=== PATIENT | male | born 1960 | race Caucasian/White ===

== ENCOUNTER 2018-07-09 18:13 | Emergency (ER) | payer BC ==
[2018-07-09] MEDS ORDERED: DIPHENHYDRAMINE 50 MG/ML VIAL ONE (19:02)
[2018-07-09] MEDS ORDERED: FAMOTIDINE 20 MG/2 ML VIAL IV ONE (19:02)
[2018-07-09 19:20] LABS: Absolute Monocytes 0.8 K/uL (0.1-1.3); Absolute Neutrophil 5.9 K/uL (1.8-8.0); Basophils % 1.1 % (0-1.3); Eosinophils % 1.2 % (0-4.4); Hematocrit 50.5 % (39.6-49.0); Lymphocytes % 22.5 % (15.3-44.8); MPV 6.5 fL (7.6-11.3); Monocytes % 8.7 % (3.3-12.3); RBC Red Blood Cell Count 5.47 M/uL (4.33-5.43)
[2018-07-09 19:21] LABS: Protime INR 1.04
[2018-07-09 19:44] LABS: ALT/SGPT 55 U/L (12-78); AST/SGOT 32 U/L (15-37); Albumin 4.5 g/dL (3.4-5.0); Alkaline Phosphatase 73 U/L (45-117); BUN Blood Urea Nitrogen 11 mg/dL (7-18); Bicarbonate 28 mmol/L (21-32); Bilirubin Direct 0.2 mg/dL (0-0.2); Bilirubin Total 0.5 mg/dL (0.2-1.0); Glucose Level 96 mg/dL (74-106); Magnesium 2.3 mg/dL (1.8-2.4); NT PRO-BNP 33 pg/mL (<125); Potassium 3.5 mmol/L (3.5-5.1); Protein, Total 7.3 g/dL (6.4-8.2); Sodium Level 135 mmol/L (136-145); Troponin (Emerg Dept Use Only) < 0.02 ng/mL (0.0-0.045)
--- NOTE | 2018-07-09 20:09 | RAD REPORT ---
EXAM DESCRIPTION: RAD - Chest Single View - 07/09/2018 7:01 pm CLINICAL HISTORY: CHEST PAIN Chest pain. COMPARISON: Chest Pa And Lat (2 Views) dated 05/13/2016 FINDINGS: Portable technique limits examination quality. The lungs are grossly clear. The heart is normal in size. No displaced fractures. IMPRESSION: No acute intrathoracic process suspected.
[2018-07-09] MEDS ORDERED: DEXAMETHASONE 4 MG/ML VIAL ONE (20:25)
--- NOTE | 2018-07-09 21:43 | ER ---
Nurse's Notes [facility] Name: Garrett Todd Jr Age: 58 yrs Sex: Male : 1960 Arrival Date: 07/09/2018 Time: 18:17 Bed 2 Private MD: Diagnosis: Chest pain, unspecified;Rash and other nonspecific skin eruption Presentation: 07/09 18:18 Presenting complaint: Patient states: midsternal constant chest pain "sting/burn" sv started about 1.5 hrs ago, took BP at [facility] and was 176/111. c/o left facial/neck rash that started today as well. Denies SOB/n/v. Transition of care: patient was not received from another setting of care. Onset of symptoms was July 09, 2018 at 16:30. Risk Assessment: Do you want to hurt yourself or someone else? Patient reports no desire to harm self or others. Initial Sepsis Screen: Does the patient meet any 2 criteria? No. Patient's initial sepsis screen is negative. Does the patient have a suspected source of infection? No. Patient's initial sepsis screen is negative. Care prior to arrival: None. 18:18 Method Of Arrival: Wheelchair sv 18:18 Acuity: WALKER 2 sv Triage Assessment: 18:18 General: Appears in no apparent distress. uncomfortable, well groomed, well developed, sv Behavior is calm, cooperative, appropriate for age. Pain: Complains of pain in mid-sternal area Pain currently is 6 out of 10 on a pain scale. Quality of pain is described as burning, stinging, Pain began 1.5 hrs ago Is continuous, Alleviated by nothing. Neuro: Level of Consciousness is awake, alert, obeys commands, Oriented to person, place, time, situation, Moves all extremities. Full function Gait is steady, Speech is normal. Cardiovascular: Patient's skin is warm and dry. Pulses are 3+ in right brachial artery and left brachial artery Rhythm is sinus rhythm. Respiratory: Airway is patent Respiratory effort is even, unlabored, Respiratory pattern is regular, symmetrical, Denies shortness of breath. Derm: Skin is pink, warm \\T\\ dry. Musculoskeletal: Range of motion: intact in all extremities. Historical: - Allergies: 19:08 No Known Allergies; sv - Home Meds: 19:08 metoprolol tartrate 25 mg Oral tab 1 tab 2 times per day [Active]; hydrochlorothiazide sv 12.5 mg Oral cap 1 cap once daily [Active]; aspirin 81 mg Oral chew 1 tab once daily [Active]; - PMHx: 19:08 Hypertension; Rheumatoid Arthritis; Gout; sv - PSHx: 19:08 Tonsillectomy; Knee surgery; Hernia repair; sv - Immunization history:: Adult Immunizations up to date. - Social history:: Smoking status: Patient/guardian denies using tobacco, Patient uses alcohol, occasionally. - Ebola Screening: : No symptoms or risks identified at this time. Screenin:18 Abuse screen: Denies threats or abuse. Denies injuries from another. Nutritional sv screening: No deficits noted. Tuberculosis screening: No symptoms or risk factors identified. Fall Risk None identified. Assessment: 18:55 Reassessment: Patient appears in no apparent distress at this time. No changes from sv previously documented assessment. Patient and/or family updated on plan of care and expected duration. Pain level reassessed. Patient is alert, oriented x 3, equal unlabored respirations, skin warm/dry/pink. 20:48 Reassessment: Patient appears in no apparent distress at this time. Patient and/or aa1 family updated on plan of care and expected duration. Pain level reassessed. Patient is alert, oriented x 3, equal unlabored respirations, skin warm/dry/pink. Repeat troponin sent at this time Patient states feeling better. 21:08 Reassessment: Patient appears in no apparent distress at this time. Patient and/or aa1 family updated on plan of care and expected duration. Pain level reassessed. Patient is alert, oriented x 3, equal unlabored respirations, skin warm/dry/pink. Awaiting repeat troponin results. 21:52 Reassessment: Patient appears in no apparent distress at this time. Patient is alert, aa1 oriented x 3, equal unlabored respirations, skin warm/dry/pink. Discussed d/c \\T\\ f/u instructions with pt; denies questions or concerns at this time Patient denies pain at this time. Vital Signs: 18:18 BP 184 / 123; Pulse 96; Resp 20; Temp 97.6; Pulse Ox 100% ; Weight 81.65 kg; Height 5 sv ft. 11 in. (180.34 cm); Pain 6/10; 18:28 BP 179 / 122; Pulse 95; Resp 17; Pulse Ox 100% on 2 lpm NC; sv 19:00 BP 149 / 112; Pulse 97; Resp 16; Pulse Ox 99% on 2 lpm NC; sv 20:01 BP 153 / 110; Pulse 94; Resp 18; Pulse Ox 96% on R/A; Pain 0/10; aa1 21:08 BP 148 / 103; Pulse 92; Resp 16; Pulse Ox 94% on R/A; Pain 0/10; aa1 18:18 Body Mass Index 25.10 (81.65 kg, 180.34 cm) sv ED Course: 18:17 Patient arrived in ED. sb2 18:18 Roberta Cervantes, RN is Primary Nurse. sv 18:18 Patient has correct armband on for positive identification. Placed in gown. Bed in low sv position. Call light in reach. paid search marketing analyst on. Pulse ox on. NIBP on. Door closed. Head of bed elevated. 18:30 Arm band placed on. sv 18:30 Initial lab(s) drawn, by me, sent to lab. Inserted saline lock: 20 gauge in right sv antecubital area, using aseptic technique. Blood collected. Flushed right antecubital with 5 ml normal saline. Oxygen administration via nasal cannula \\T\\ 2L/min. 18:32 Unruly Roman PA is PHCP. [facility] 18:32 Parviz Greene MD is Attending Physician. [facility] 18:59 XRAY Chest (1 view) In Process Unspecified. EDMS 19:07 Triage completed. sv 19:12 Report given to Estela OROZCO. sv 19:36 Primary Nurse role handed off by Roberta Cervantes RN sv 20:01 Estela Ignacio RN is Primary Nurse. aa1 20:48 Repeat lab(s) drawn. by me, sent to lab. aa1 21:52 No provider procedures requiring assistance completed. IV discontinued, intact, aa1 bleeding controlled, No redness/swelling at site. Pressure dressing applied. Administered Medications: 18:55 Drug: Pepcid 20 mg Route: IVP; Site: right antecubital; sv 19:13 Follow up: Response: No adverse reaction sv 18:57 Drug: diphenhydrAMINE 12.5 mg Route: IVP; Site: right antecubital; sv 19:13 Follow up: Response: No adverse reaction 20:22 Drug: Decadron - Dexamethasone 10 mg Route: IVP; Site: right antecubital; aa1 21:51 Follow up: Response: No adverse reaction aa1 Outcome: 21:42 Discharge ordered by . tiffanie 21:52 Discharged to home ambulatory. aa1 21:52 Condition: good 21:52 Discharge instructions given to patient, Instructed on discharge instructions, follow up and referral plans. medication usage, Demonstrated understanding of instructions, follow-up care, medications, Prescriptions given X 1. 21:54 Patient left the ED. aa1 Signatures: Dispatcher [employer] EDRoberta Welsh RN RN sv Kern, Alissa, RN RN aa1 Unruly Roman PA PA jmm Billeau, Sheri sb2
--- NOTE | 2018-07-09 21:43 | EDPHYS ---
Physician Documentation [facility] Name: Garrett Todd Jr Age: 58 yrs Sex: Male : 1960 Arrival Date: 07/09/2018 Time: 18:17 Bed 2 Private MD: ED Physician Parviz Greene HPI: 07/09 18:40 This 58 yrs old Male presents to ER via Wheelchair with complaints of Chest jmm Pain > 30 y/o. 18:40 The patient or guardian reports chest pain that is located primarily in the anterior [facility] chest wall, bilaterally. Onset: gradually, 1.5 hour(s) ago. The pain does not radiate. Associated signs and symptoms: Pertinent positives: Pertinent negatives: abdominal pain, cough, shortness of breath. The chest pain is described as burning. Duration: The patient or guardian reports a single episode. This is a 58 year old male with a history of htn, RA that presents to the ED with a rash to his face, neck, and chest. Initially beginning yesterday to his neck which has spread today. patient states he went to check his blood pressure, noticed it was elevated, then developed a burning/tight chest pain to his anterior chest wall around the area of rash. 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 . Historical: - Allergies: 19:08 No Known Allergies; sv - Home Meds: 19:08 metoprolol tartrate 25 mg Oral tab 1 tab 2 times per day [Active]; hydrochlorothiazide sv 12.5 mg Oral cap 1 cap once daily [Active]; aspirin 81 mg Oral chew 1 tab once daily [Active]; - PMHx: 19:08 Hypertension; Rheumatoid Arthritis; Gout; sv - PSHx: 19:08 Tonsillectomy; Knee surgery; Hernia repair; sv - Immunization history:: Adult Immunizations up to date. - Social history:: Smoking status: Patient/guardian denies using tobacco, Patient uses alcohol, occasionally. - Ebola Screening: : No symptoms or risks identified at this time. ROS: 18:40 Constitutional: Negative for fever, chills, and weight loss. jmm 18:40 Cardiovascular: Positive for chest pain. 18:40 Respiratory: Negative for shortness of breath. 18:40 Skin: Positive for rash. 18:40 All other systems are negative. Exam: 18:40 Constitutional: This is a well developed, well nourished patient who is awake, alert, jmm and in no acute distress. 18:40 Eyes: EOMI, no conjunctival erythema appreciated ENT: Moist Mucus Membranes Neck: Trachea midline, Supple Chest/axilla: Normal chest wall appearance and motion. 18:40 Abdomen/GI: Non distended, soft Back: Normal ROM 18:40 Head/face: erythematous rash noted to the face. 18:40 Cardiovascular: Rate: normal, Rhythm: regular, Pulses: no pulse deficits are appreciated. 18:40 Respiratory: the patient does not display signs of respiratory distress, Respirations: normal, Breath sounds: are clear throughout. 18:40 Skin: erythematous rash noted to the face, neck, and anterior chest wall. 18:40 Neuro: Orientation: is normal, Mentation: is normal, Memory: is normal. 18:40 Psych: Behavior/mood is pleasant, cooperative. Vital Signs: 18:18 BP 184 / 123; Pulse 96; Resp 20; Temp 97.6; Pulse Ox 100% ; Weight 81.65 kg; Height 5 sv ft. 11 in. (180.34 cm); Pain 6/10; 18:28 BP 179 / 122; Pulse 95; Resp 17; Pulse Ox 100% on 2 lpm NC; sv 19:00 BP 149 / 112; Pulse 97; Resp 16; Pulse Ox 99% on 2 lpm NC; sv 20:01 BP 153 / 110; Pulse 94; Resp 18; Pulse Ox 96% on R/A; Pain 0/10; aa1 21:08 BP 148 / 103; Pulse 92; Resp 16; Pulse Ox 94% on R/A; Pain 0/10; aa1 18:18 Body Mass Index 25.10 (81.65 kg, 180.34 cm) sv MDM: 18:40 Patient medically screened. [facility] 21:18 HEART Score: ECG: Normal (0), Age: > 45 and < 65 years (1), Risk Factors: 1 or 2 risk [facility] factors (1), Troponin: < or = 1 x Normal Limit (0). JUANCHO Risk Score: TOTAL SCORE = 0. Data reviewed: vital signs, nurses notes, lab test result(s), EKG, radiologic studies, plain films. ED course: Chest pain appears secondary to rash. Chest pain is atypical of cardiac conditions. Cardiac enzymes negative. Patient is given strict return precautions for increased chest pain or if he develops shortness of breath.. 21:18 Counseling: I had a detailed discussion with the patient and/or guardian regarding: the [facility] historical points, exam findings, and any diagnostic results supporting the discharge/admit diagnosis, lab results, radiology results, the need for outpatient follow up, to return to the emergency department if symptoms worsen or persist or if there are any questions or concerns that arise at home. 21:19 The patient's pulmonary embolism risk score was calculated as follows: No Risks (0 jmm Pts). Data interpreted: Pulse oximetry: on room air is 94 %. Interpretation: normal. Test interpretation: by ED physician or midlevel provider: ECG. 07/09 18:25 Order name: Basic Metabolic Panel; Complete Time: 19:54 sv 07/09 18:25 Order name: CBC with Diff; Complete Time: 19:27 sv 07/09 18:25 Order name: LFT's; Complete Time: 19:54 sv 07/09 18:25 Order name: Magnesium; Complete Time: 19:54 sv 07/09 18:25 Order name: NT PRO-BNP; Complete Time: 19:54 sv 07/09 18:25 Order name: PT-INR; Complete Time: 19:27 sv 07/09 18:25 Order name: Troponin (emerg Dept Use Only); Complete Time: 19:54 sv 07/09 18:25 Order name: XRAY Chest (1 view); Complete Time: 20:11 sv 07/09 18:25 Order name: EKG; Complete Time: 18:27 sv 07/09 18:25 Order name: Cardiac monitoring; Complete Time: 19:13 sv 07/09 20:37 Order name: Troponin (emerg Dept Use Only); Complete Time: 21:42 jmm 07/09 18:25 Order name: EKG - Nurse/Tech; Complete Time: 19:13 sv 07/09 18:25 Order name: IV Saline Lock; Complete Time: 19:13 sv 07/09 18:25 Order name: Labs collected and sent; Complete Time: 19:13 sv 07/09 18:25 Order name: O2 Per Protocol; Complete Time: 19:13 sv 07/09 18:25 Order name: O2 Sat Monitoring; Complete Time: 19:13 sv Administered Medications: 18:55 Drug: Pepcid 20 mg Route: IVP; Site: right antecubital; sv 19:13 Follow up: Response: No adverse reaction sv 18:57 Drug: diphenhydrAMINE 12.5 mg Route: IVP; Site: right antecubital; sv 19:13 Follow up: Response: No adverse reaction sv 20:22 Drug: Decadron - Dexamethasone 10 mg Route: IVP; Site: right antecubital; aa1 21:51 Follow up: Response: No adverse reaction aa1 Disposition: 07/09/18 21:42 Discharged to Home. Impression: Chest pain, unspecified, Rash and other nonspecific skin eruption. - Condition is Stable. - Discharge Instructions: Nonspecific Chest Pain, Rash. - Prescriptions for Prednisone 20 mg Oral Tablet - take 3 tablet by ORAL route once daily for 5 days; 15 tablet. - Medication Reconciliation Form, Thank You Letter, Antibiotic Education, Prescription Opioid Use form. - Follow up: Private Physician; When: 2 - 3 days; Reason: Recheck today's complaints, Continuance of care, Re-evaluation by your physician. Signatures: Dispatcher [employer] EDRboerta Welsh, RN RN Estela Ignacio RN RN aa1 Unruly Roman PA PA jmm Corrections: (The following items were deleted from the chart) 21:54 21:42 07/09/2018 21:42 Discharged to Home. Impression: Chest pain, unspecified; Rash aa1 and other nonspecific skin eruption. Condition is Stable. Forms are Medication Reconciliation Form, Thank You Letter, Antibiotic Education, Prescription Opioid Use. Follow up: Private Physician; When: 2 - 3 days; Reason: Recheck today's complaints, Continuance of care, Re-evaluation by your physician. tiffanie
--- NOTE | 2018-07-10 09:50 | EKG ---
Test Date: 2018-07-09 Test Time: 18:24:44 Multiple Coil Winder: JULIANNA MEASUREMENT RESULTS: Intervals: Rate: 90 ME: 152 QRSD: 84 QT: 346 QTc: 423 [place]: P: 41 ME: 152 QRS: -7 T: 26 INTERPRETIVE STATEMENTS: Normal sinus rhythm Normal ECG Compared to ECG 05/13/2016 05:43:20 No significant changes Electronically Signed On 07-10-18 08:34:47 [facility]ARCH CRAB by Eric Holloway
== END 2018-07-09 21:54 | disposition home or self-care (01) ==
LOC: ER 18:13
DX: R07.9 Chest pain, unspecified (principal); R21 Rash and other nonspecific skin eruption; I10 Essential (primary) hypertension; Z79.82 Long term (current) use of aspirin; Z79.899 Other long term (current) drug therapy
CPT/HCPCS: 36415; 71045; 80048; 80076; 83735; 83880; 84484; 85025; 85610; 93005; 96374; 96375; 99285